=== PATIENT | male | born 1950 | race Caucasian/White ===

== ENCOUNTER 2020-02-21 04:04 | Emergency (ER) | payer OTHER ==
[~2020-02-21] VITALS: Ht 182.9 cm; Wt 81.7 kg
[2020-02-21] MEDS ORDERED: PRINIVIL10 MG PO (04:23)
[2020-02-21 04:44] LABS: Alanine Aminotransfer (ALT/SGP 21 U/L (12-78); Albumin, Blood 3.8 g/dL (3.4-5.0); Albumin/Globulin Ratio 0.9 (0.8-1.8); Alk Phos 69 U/L (50-136); Anion Gap 8 mmol/L (6-16); Aspartate Aminotrans (AST/SGOT 20 U/L (12-37); Bilirubin, Total 0.8 mg/dL (0.1-1.0); Blood Urea Nitrogen 25 mg/dL (8-24); Bun/Creatinine Ratio 25.2 (12.0-20.0); CO2, Blood 26 mmol/L (21-32); Calcium, Blood 9.1 mg/dL (8.5-10.1); Chloride, Blood 105 mmol/L (98-108); Creatinine, Blood 0.99 mg/dL (0.60-1.20); Globulin, Blood 4.1 g/dL (2.2-4.0); Glomerular Filtration Rate >60 (60-); Glucose, Blood 177 mg/dL (70-99); Sodium, Blood 139 mmol/L (136-145); Total Protein, Blood 7.9 g/dL (6.4-8.2)
[2020-02-21 05:06] LABS: BASOPHILS ABSOLUTE AUTO 0.07 K/mm3 (0.00-0.23); BASOPHILS PERCENT AUTO 1 % (0-2); EOSINOPHILS ABSOLUTE AUTO 0.02 K/mm3 (0.00-0.68); EOSINOPHILS PERCENT AUTO 0 % (0-6); Hematocrit 47.3 % (37.0-53.0); Hemoglobin 15.8 g/dL (13.5-17.5); IMMATURE GRAN ABSOLUTE AUTO 0.07 K/mm3 (0.00-0.10); IMMATURE GRAN PERCENT AUTO 1 % (0-1); LYMPHOCYTES ABSOLUTE AUTO 1.62 K/mm3 (0.84-5.20); LYMPHOCYTES PERCENT AUTO 14 % (21-46); MONOCYTES ABSOLUTE AUTO 0.76 K/mm3 (0.16-1.47); MONOCYTES PERCENT AUTO 7 % (4-13); Mean Corpuscular HGB 29.4 pg (26.0-34.0); Mean Corpuscular HGB Conc 33.4 g/dL (31.5-36.5); Mean Corpuscular Volume 88 fL (80-100); NEUTROPHILS ABSOLUTE AUTO 8.96 K/mm3 (1.96-9.15); NEUTROPHILS PERCENT AUTO 78 % (41-73); Platelet Count 313 K/mm3 (150-400); RDW Coefficient Variation 12.2 % (11.7-14.2); RDW Standard Deviation 39.6 fL (35.1-46.3); Red Blood Cell Count 5.37 M/mm3 (4.30-5.90)
[2020-02-21 06:12] LABS: Source, Urine Clean Catch
[2020-02-21 06:16] LABS: Bilirubin, Urine Neg (Neg); Blood, Urine 4+ (Neg); Glucose Qualitative, Urine 3+ (Neg); Ketones, Urine 4+ (Neg); Leukocyte Esterase, Urine Neg (Neg); Nitrite, Urine Neg (Neg); Protein, Urine 2+ (Neg); Specific Gravity, Urine 1.015 (1.003-1.022); Urobilinogen, Urine 1+ (Normal)
[2020-02-21 06:27] LABS: Appearance, Urine Clear (Clear); Color, Urine Yellow (P-Yellow)
[2020-02-21 06:28] LABS: Bacteria Rare /hpf; Granular Casts 0-2 /lpf (0); Mucus Light (0-Heavy); Squamous Epithelial Cells Rare /hpf (Few); White Blood Cells, Urine 0-2 /hpf (0-5)
[2020-02-21] MEDS ORDERED: ONDA4ODT MM (10:36)
== END 2020-02-21 11:15 | disposition home or self-care (01) ==
LOC: ER 04:04
PROVIDERS: Emergency Medicine
DX: N20.1 Calculus of ureter (principal); N13.9 Obstructive and reflux uropathy, unspecified; Z79.899 Other long term (current) drug therapy
CPT/HCPCS: 36415; 74177; 80053; 81001; 83605; 83690; 85025; 96361-59; 96365-59; 96375-59; 99285-25; J0696; J2270; J2405; J7120; Q9967

== ENCOUNTER 2021-05-28 09:03 | Day surgery (SDC) | payer OTHER ==
[~2021-05-28] VITALS: Ht 182.9 cm; Wt 80.9 kg
[~2021-05-28 09:03] MED LIST: ONDA4ODT MM; PRINIVIL10 MG PO
--- NOTE | 2021-05-28 10:37 | NUR ---
05/28/21 Nesha Carvalho 30 MG EPI USED TO SOAK PLEDGETS PER ORDER FOR PACKING. LIDOCAINE 1% 30 MLS MIXED WITH 0.15 EPI PER ORDER TO MAKE LIDOCAINE 1% 1:200,000 FOR INJECTION AT [facility] BY DR DOMINGO. 6 MLS INJECTED.
--- NOTE | 2021-05-28 13:53 | NUR ---
05/28/[address] SHARMA AND DR DOMINGO EXAMINED PT. ORDERED TO OBSERVE AND MONITOR VITAL OF PATIENT.
--- NOTE | 2021-05-28 14:42 | NUR ---
05/28/21 2937 ZACHARY WALLACE LATE ENTRY PT IN PACU REPEATED MULTIPLE TIMES- TAKE ME JENNIFER. WHEN I ASKED HIM TO MOVE HIS HANDS AND FEET, HE WOULD SHAKE HIS HEAD NO. FINALLY WAS ABLE TO ADMIT THAT HE WAS UNABLE TO MOVE HIS FEET, THOUGH WAS ABLE TO SQUEEZE HIS LEFT HAND. MINIMAL RESPONSE. I NOTICED TEARS, I ASKED IF HE HURT, HE WOULD ONLY REPLY- "BURNING". HE WAS MEDICATED WITH A TOTAL OF 200MG FENTANYL IN PACU. HOWEVER, DUE TO LACK OF ABILITY TO MOVE, ADDITIONAL PAIN MEDICATION HAS NOT BEEN GIVEN.
== END 2021-05-28 17:15 | disposition home or self-care (01) ==
LOC: ORSCSDS 09:03
PROVIDERS: Otolaryngology
PROC: 09SM4ZZ Reposition Nasal Septum, Percutaneous Endoscopic Approach (ICD-10-PCS; principal; 2021-05-28 10:30)
PROC: 8E09XBZ Computer Assisted Procedure of Head and Neck Region (ICD-10-PCS; principal; 2021-05-28 10:30)
PROC: 09DU4ZZ Extraction of Right Ethmoid Sinus, Percutaneous Endoscopic Approach (ICD-10-PCS; principal; 2021-05-28 10:30)
PROC: 09DV4ZZ Extraction of Left Ethmoid Sinus, Percutaneous Endoscopic Approach (ICD-10-PCS; principal; 2021-05-28 10:30)
DX: J34.2 Deviated nasal septum (principal); J32.9 Chronic sinusitis, unspecified; R51.9 Headache, unspecified; I10 Essential (primary) hypertension; Z79.899 Other long term (current) drug therapy
CPT/HCPCS: 88305; J0171; J1100; J2250; J2405; J2704; J3010

== ENCOUNTER → 2022-06-23 | Outpatient (CLI) | payer OTHER | END | disposition home or self-care (01) | LOC: LAB SHORT 14:03 → LAB 14:03 | DX: R11.0 Nausea (principal) | CPT/HCPCS: 87338 ==

== ENCOUNTER 2022-10-15 11:06 | Day surgery (SDC) | payer OTHER ==
[~2022-10-15] VITALS: Ht 182.9 cm; Wt 81.0 kg
--- NOTE | 2022-10-15 11:25 | NUR ---
10/15/22 1124 Angelique Rodgers TETRACAINE TO LEFT EYE 1118 PLEDGET TO LEFT EYE AT 1120 BY [facility].MES
[2022-10-15 13:10] VITALS: BP 112/72
--- NOTE | 2022-10-15 13:16 | NUR ---
10/15/22 1316 ZACHARY WALLACE IV REMOVED FROM RIGHT AC- WNL. TOLERATED WELL
== END 2022-10-15 13:49 | disposition home or self-care (01) ==
LOC: ORSCSDS 11:06
PROVIDERS: Ophthalmology
PROC: 08RK3JZ Replacement of Left Lens with Synthetic Substitute, Percutaneous Approach (ICD-10-PCS; principal; 2022-10-15 12:30)
DX: H25.13 Age-related nuclear cataract, bilateral (principal); I10 Essential (primary) hypertension; Z87.891 Personal history of nicotine dependence; E78.5 Hyperlipidemia, unspecified; G40.909 Epilepsy, unspecified, not intractable, without status epilepticus; Z79.899 Other long term (current) drug therapy
CPT/HCPCS: J2250; J3010; J3301; J7040; V2632

== ENCOUNTER 2022-11-05 11:06 | Day surgery (SDC) | payer OTHER ==
[~2022-11-05] VITALS: Ht 182.9 cm; Wt 79.1 kg
--- NOTE | 2022-11-05 11:31 | NUR ---
11/05/22 1131 Hortencia Leon TETRACAINE TO RIGHT EYE AT 1131 PLEDGET TO RIGHT EYE AT [address] [facility]
[2022-11-05 12:37] VITALS: BP 119/73
== END 2022-11-05 12:53 | disposition home or self-care (01) ==
LOC: ORSCSDS 11:06
PROVIDERS: Ophthalmology
PROC: 08DJ3ZZ Extraction of Right Lens, Percutaneous Approach (ICD-10-PCS; principal; 2022-11-05 12:30)
DX: H25.11 Age-related nuclear cataract, right eye (principal); Z96.1 Presence of intraocular lens; I10 Essential (primary) hypertension; R56.9 Unspecified convulsions; Z87.891 Personal history of nicotine dependence
CPT/HCPCS: J2250; J3010; J3301; J7040; V2632

== ENCOUNTER 2025-01-19 10:30 | Emergency (ER) | payer OTHER ==
[~2025-01-19] VITALS: Ht 182.9 cm; Wt 84.8 kg
[2025-01-19] MEDS ORDERED: OXYC5 PO (10:44)
[2025-01-19] MEDS ORDERED: Amitriptyline H10 MG PO (10:44)
[2025-01-19] MEDS ORDERED: LOSARTAN POTASS25 M2 PO (10:44)
[2025-01-19] MEDS ORDERED: HYDROmorphone HCl/Pf 1MG SYR IV ONE (10:45)
[2025-01-19] MEDS ORDERED: Ondansetron HCl 2 MG / ML 2ML Vial IV ONE (10:45)
[2025-01-19] MEDS ORDERED: PREGABALIN75 MG PO (10:46)
[2025-01-19 11:15] LABS: BASOPHILS ABSOLUTE AUTO 0.03 K/mm3 (0.00-0.23); BASOPHILS PERCENT AUTO 0 % (0-2); EOSINOPHILS ABSOLUTE AUTO 0.11 K/mm3 (0.00-0.68); EOSINOPHILS PERCENT AUTO 2 % (0-6); Hematocrit 38.7 % (37.0-53.0); Hemoglobin 13.5 g/dL (13.5-17.5); IMMATURE GRAN ABSOLUTE AUTO 0.02 K/mm3 (0.00-0.10); IMMATURE GRAN PERCENT AUTO 0 % (0-1); LYMPHOCYTES ABSOLUTE AUTO 1.52 K/mm3 (0.84-5.20); LYMPHOCYTES PERCENT AUTO 21 % (21-46); MONOCYTES ABSOLUTE AUTO 0.65 K/mm3 (0.16-1.47); MONOCYTES PERCENT AUTO 9 % (4-13); Mean Corpuscular HGB Conc 34.9 g/dL (31.5-36.5); Mean Corpuscular Volume 87 fL (80-100); NEUTROPHILS ABSOLUTE AUTO 4.91 K/mm3 (1.96-9.15); NEUTROPHILS PERCENT AUTO 68 % (41-73); NRBC ABSOLUTE 0.00 K/mm3 (0.00-0.02); NRBC Auto 0.0 /100 WBC (0.0-0.2); Platelet Count 285 K/mm3 (150-400); RDW Coefficient Variation 12.1 % (11.7-14.2); RDW Standard Deviation 39.0 fL (35.1-46.3)
[2025-01-19 11:49] LABS: Alanine Aminotransfer (ALT/SGP 25.0 U/L (12-78); Albumin, Blood 3.9 g/dL (3.4-5.0); Albumin/Globulin Ratio 1.0 (0.8-1.8); Anion Gap 10.0 mmol/L (3-11); Aspartate Aminotrans (AST/SGOT 20.0 U/L (12-37); Bilirubin, Total 0.8 mg/dL (0.1-1.0); Blood Urea Nitrogen 17.0 mg/dL (8-24); CO2, Blood 26.0 mmol/L (21-32); Calcium, Blood 9.2 mg/dL (8.5-10.1); Chloride, Blood 104.0 mmol/L (98-108); Creatinine, Blood 1.0 mg/dL (0.60-1.20); Globulin, Blood 4.0 g/dL (2.2-4.0); Glucose, Blood 135.0 mg/dL (70-99); Potassium, Blood 3.5 mmol/L (3.5-5.5); Sodium, Blood 136.0 mmol/L (136-145); Total Protein, Blood 7.9 g/dL (6.4-8.2)
[2025-01-19] MEDS ORDERED: PROM25 PO (15:18)
[2025-01-19 15:45] VITALS: BP 141/84
== END 2025-01-19 16:00 | disposition home or self-care (01) ==
LOC: ER 10:30
PROVIDERS: Emergency Medicine
DX: K85.90 Acute pancreatitis without necrosis or infection, unspecified (principal); Z59.89 Other problems related to housing and economic circumstances; I10 Essential (primary) hypertension; Z88.1 Allergy status to other antibiotic agents; Z79.899 Other long term (current) drug therapy
CPT/HCPCS: 74177; 80053; 83690; 84484; 85025; 93005; 93010; 96361; 96374-59; 96375; 99285-25; J1171; J2405; J7120; Q9967

== ENCOUNTER → 2025-03-12 | Outpatient (CLI) | payer OTHER ==
[~2025-03-12] MED LIST changes: +Amitriptyline H10 MG PO; +LOSARTAN POTASS25 M2 PO; +OXYC5 PO; +PREGABALIN75 MG PO; +PROM25 PO
[2025-03-16 12:13] LABS: CALPROTECTIN,FECAL 22 ug/g (<=49)
== END ==
LOC: LAB SHORT 10:00 → LAB 10:00
PROVIDERS: Physician Assistant Medical
DX: R63.4 Abnormal weight loss (principal); R10.84 Generalized abdominal pain
CPT/HCPCS: 83993